=== PATIENT | male | born 1965 ===

== ENCOUNTER 2017-08-28 09:33 | Emergency (ER) | payer MEDICAID, OTHER ==
[2017-08-28 09:33] VITALS: BMI 31.3
[2017-08-28 09:55] VITALS: BP 150/100; PULSE 73; RESP 16; TEMP 98.8; O2SAT 97
--- NOTE | 2017-08-28 10:59 | C.PDOC ---
Time Seen by Provider: 08/28/17 10:30 Chief Complaint (Nursing): GI Problem Past Medical History Vital Signs: Last Vital Signs Temp 98.8 F 08/28/17 09:52 Pulse 73 08/28/17 09:52 Resp 16 08/28/17 09:52 BP 150/100 H 08/28/17 09:52 Pulse Ox 97 08/28/17 09:52 - Medical History PMH: HTN Family History: States: Unknown Family Hx - Social History Hx Alcohol Use: Yes Hx Substance Use: No - Immunization History Hx Tetanus Toxoid Vaccination: No Hx Influenza Vaccination: No Hx Pneumococcal Vaccination: No ED Course And Treatment O2 Sat by Pulse Oximetry: 97 Disposition - Disposition Disposition: LEFT W/O BEING SEEN - ER ONLY Disposition Time: 10:30 Condition: UNKNOWN Forms: [facility] ([place]) - Clinical Impression Clinical Impression: Patient left without being seen
== END 2017-08-28 10:30 | disposition left against medical advice (07) ==
LOC: C.ER 09:33
DX: Z02.89 Encounter for other administrative examinations (principal); R11.10 Vomiting, unspecified